=== PATIENT | female | born 1975 ===

== ENCOUNTER 2019-03-15 22:17 | Emergency (ER) | payer OTHER, MEDICAID ==
[2019-03-15 22:34] VITALS: BP 109/75; PULSE 65; RESP 18; TEMP 98.4; O2SAT 100
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
--- NOTE | 2019-03-16 08:43 | RAD ---
Date of service: 03/15/2019 PROCEDURE: Cervical Spine Radiographs. HISTORY: Pain. COMPARISON: None available. TECHNIQUE: 3 views of the cervical spine were obtained. FINDINGS: BONES: Alignment maintained. No fracture. Dens Intact. DISC SPACES: There is very mild endplate change seen at C5-6 and to a lesser degree at C6-7. No jumped facets are seen. Posterior elements are intact. There is no abnormal widening of C1-C2. No cervical ribs are seen. SOFT TISSUES: Normal. No prevertebral soft tissue swelling. OTHER FINDINGS: None. IMPRESSION: No evidence of fracture or malalignment.
== END 2019-03-15 23:57 | disposition home or self-care (01) ==
LOC: H.ER 22:17
DX: R51 Headache (principal); M54.2 Cervicalgia; V43.52XA Car driver injured in collision with other type car in traffic accident, initial encounter; Y92.410 Unspecified street and highway as the place of occurrence of the external cause